=== PATIENT | female | born 1945 | race Caucasian/White ===

== ENCOUNTER 2018-01-31 20:48 | Inpatient (IN) | payer OTHER ==
[~2018-01-31] VITALS: Wt 96.8 kg
--- NOTE | ~2018-01-31 | HC ---
[facility] [place] [address] CONSULTATION Name: YESENIA PARTIDA Room #: 206- ADM IN M.R.#: [id number] Admission: 01/31/18 Attend Phys: Obie Mendes MD Discharge: Date of : 45 Report #: [id number] THIS REPORT FOR: //name// CC: bOie Mendes DATE OF SERVICE: 02/01/2018 ATTENDING PHYSICIAN: Obie Mendes MD REASON FOR CONSULTATION: Antibiotic management. HISTORY OF PRESENT ILLNESS: A 72-year-old woman is admitted through the Emergency Room with chest pain. The patient relates chest pain similar to the one she had previously. She has ischemic cardiomyopathy and angina pectoris. The pain is made worse by getting up, sitting motion. Currently, she relates she had some dry cough and is requiring 2 liters of oxygen supplementation. She uses supplemental oxygen at home on as needed basis every now and then. PAST MEDICAL HISTORY: Coronary artery bypass grafting. Angina pectoris. Ischemic cardiomyopathy per dipyridamole stress test. Diabetes mellitus. End-stage renal disease on hemodialysis three times weekly. Bilateral AKA. Chronic draining sinus tract in right groin area. Occasional cigarette smoking. DRUG ALLERGIES: TAPE, OXYCODONE, KETOROLAC, PENICILLIN. SHE TOLERATES KEFLEX. ANAPHYLAXIS WITH PENICILLIN. MORPHINE, VOMITING. SHE IS ALSO INTOLERANT OR ALLERGIC TO ACETAMINOPHEN, HYDROCODONE, CODEINE, BACLOFEN, IBUPROFEN AND TRAMADOL. ACTUALLY SHE TOLERATES VANCOMYCIN SHE TELLS ME. AT ONE POINT IN TIME, SHE APPEARS TO HAVE HAD SOME REACTION TO THESE MEDICATIONS. SOCIAL HISTORY: See H and P, old records. FAMILY HISTORY: See H and P, old records. REVIEW OF SYSTEMS: See ER records and as above. PHYSICAL EXAMINATION: GENERAL: Chronically ill-appearing, overweight woman. VITAL SIGNS: Presenting with following vital signs: Temperature 98.2, pulse 84, respirations 18 and BP 113/41. O2 saturation 94-99% on 2-3 liters oxygen nasal cannula. HEENMT: Head normocephalic and atraumatic. Pupils are reactive. Mouth: Upper plates, missing teeth on jaw. NECK: Supple, no thyromegaly. LUNGS: Few crackles in right lung posteriorly. HEART: S1 and S2. No gallop or murmur. ABDOMEN: Obese, soft, no masses or megaly. [facility] [address] [place] [address] CONSULTATION Name: YESENIA PARTIDA Room #: 206-P ADM IN M.R.#: [id number] Admission: 01/31/18 Attend Phys: Obie Mendes MD Discharge: Date of : 45 Report #: [id number] EXTREMITIES: Bilateral AKA, chronic right groin sinus tract, no drainage at present time, but I believe it was cultured. NEUROLOGIC: Grossly within normal limits. LABORATORY DATA: Sodium 131, potassium 6.6, BUN 49, creatinine 5.6, glucose 322 and calcium 9.4. Troponin 0.13. Protime 10.5. WBC elevated at 22,100, the differential revealed 87% neutrophils, hemoglobin 8.9 g/dL and platelets 246,000. ABGs: pH 7.40, pCO2 of 35, pO2 66, bicarbonate 21.6 and lactate normal at 1.93. These set of gases on 2 liters oxygen nasal cannula. RADIOLOGY EVALUATION: The chest x-ray revealed cardiomegaly, status post coronary artery bypass grafting, question right basilar infiltrate versus congestive heart failure and haziness on the left lower lung as well. There is a tunneled dialysis catheter on the right internal jugular vein. ASSESSMENT: 1. Chest pain, possible angina pectoris. 2. Coronary artery disease, status post coronary artery bypass grafting and evidence of ischemia by dipyridamole stress test. 3. Leukocytosis and question pneumonia versus asymmetric pulmonary edema. 4. End-stage renal disease on hemodialysis. 5. Diabetes mellitus. SUGGESTIONS: Recommend meropenem 500 mg IV every 12 hours, Levaquin 500 mg IV every 48 hours, Zyvox 600 mg IV every 12 hours. MRSA screen. ESR, CRP and procalcitonin. Streamline antibiotics once culture results available and pending test result ordered today, Dr. Mendes, thank you for requesting my suggestions. <ELECTRONICALLY SIGNED> By: Henry Palacios MD 02/02/18 0947 [id number] [id number] Henry Palacios MD /nt
--- NOTE | ~2018-01-31 | D ---
[facility] [place] [address] DISCHARGE SUMMARY Name: YESENIA PARTIDA Room #: [facility] M.R.[facility] [id number] Admission: 01/31/18 Attend Phys: Obie Mendes MD Discharge: 02/05/18 Date of : 45 Report #: [id number] THIS REPORT FOR: //name// CC: Obie Mendes DATE OF SERVICE: 02/05/2018 FINAL DIAGNOSES: 1. Pleural effusion. 2. End-stage renal disease. 3. Hyperkalemia. 4. Right groin infection. 5. Diabetes type 2. 6. Peripheral artery disease. 7. History of bilateral above knee amputation. 8. Anemia of chronic disease. 9. Diabetic gastroparesis. HOSPITAL COURSE: The patient was admitted with shortness of breath. Cardiac enzymes were only slightly elevated and actually decreasing and we felt this was more related to her renal dysfunction. She just had a previous admission at [facility] and evaluated by Cardiology there and their recommendation was medical management. Dr. Mccoy managed dialysis and the hyperkalemia. Dr. Christopher was consulted for concern of pneumonia; however, x-ray findings are more consistent with pulmonary edema. With additional dialysis showed improvement of the pulmonary edema. Dr. Christopher ordered a CT of the abdomen and pelvis. There was concern of chronic infection in the right groin femoral artery bypass graft. The patient reported that she had seen Dr. Corbett, her vascular surgeon, at [facility] in the past in regards to this and she reported that he did not have any plans for surgical intervention. There was purulent drainage, which was cultured and antibiotics were ordered accordingly. CT did not show an abscess in that area. Discussed antibiotic options with Dr. Christopher and we settled on oral Zyvox and Levaquin for discharge to the facility. DISPOSITION: She is being transferred back to [facility]. I signed her transfer orders and medication list. I will follow her stay there. She will remain on renal diabetic diet. We will arrange followup with her vascular surgeon again in regards to the right groin, but it appears that this has already been addressed in the past. <ELECTRONICALLY SIGNED> By: Obie Mendes MD 02/09/18 0922 [id number] Obie Mendes MD /nt
--- NOTE | ~2018-01-31 | H ---
[facility] [place] [address] HISTORY AND PHYSICAL Name: YESENIA PARTIDA Room #: 206-P ADM IN M.R.#: [id number] Admission: 01/31/18 Attend Phys: Obie Mendes MD Discharge: Date of : 45 Report #: [id number] THIS REPORT FOR: //name// CC: Obie Mendes CHIEF COMPLAINT: Chest pain. HISTORY OF PRESENT ILLNESS: The patient is a 72-year-old female from [facility] who was sent to the Emergency Room with an episode of chest pain. Symptoms began earlier in the afternoon and she described it as a persistent right-sided chest pain that seemed worse with a cough and she had some congestion with sputum production. She had some nausea as well. The care home called me stating that she was pale, diaphoretic, and slightly hypotensive and they sent her to the Emergency Room. She was diverted from [facility], which is her normal hospital, here. Evaluation of her in ER shows a chest x-ray with a right-sided infiltrate versus pulmonary edema. She did have an elevated white count. She has been treated for pneumonia overnight. She was hospitalized at [facility] about 7-10 days ago for chest pain. I believe her records were that her troponin was just slightly elevated, but it does not appear that any cardiac interventions were entertained. She was medically stabilized and transferred back. She does have a history of smoking on occasion and she has had significant peripheral vascular disease with bilateral [id number]-[id number] amputations in the past. PAST MEDICAL HISTORY: End-stage renal disease, on hemodialysis; COPD, prior history of smoking, she wears oxygen on occasion; hypertension, peripheral vascular disease as mentioned, bilateral AKA, anemia of chronic disease, gastroparesis, coronary artery disease with cardiac bypass in 1998. She has had breast cancer with a prior history of mastectomy. PAST SURGICAL HISTORY: As above. FAMILY HISTORY: Noncontributory. SOCIAL HISTORY: She has been living in the care home for 5-6 years. As mentioned, occasional tobacco history. No alcohol history. ALLERGIES: BACLOFEN, CODEINE, HYDROCODONE, IBUPROFEN, MORPHINE, OXYCODONE, PENICILLIN, TRAMADOL, VANCOMYCIN, TORADOL, FENTANYL. MEDICATIONS: Lantus, omeprazole, Dilaudid, aspirin, Coreg, guaifenesin, hydroxyzine for itching, iron, lactulose, Lyrica, multivitamin, NovoLog with meals, Procrit, Reglan, Lipitor, calcium acetate, Renvela, Flonase, Arimidex, Nephro-Ag. REVIEW OF SYSTEMS: She complains of nausea. She has had congested cough. She is having some right-sided pain. Denies headache, abdominal pain, constipation, [facility] [address] [place] [address] HISTORY AND PHYSICAL Name: YESENIA PARTIDA Room #: 206-P [facility] IN M.R.#: [id number] Admission: 01/31/18 Attend Phys: Obie Mendes MD Discharge: Date of : 45 Report #: [id number] diarrhea, or dysuria. OBJECTIVE: VITAL SIGNS: Temperature 36.4, pulse 87, respirations 26, blood pressure 107/37, O2 sat 98% on 2 liters. GENERAL: She is awake and alert, in no distress. HEAD AND NECK: Unremarkable. LUNGS: Clear. HEART: Regular. ABDOMEN: Obese, soft, normoactive bowel sounds. EXTREMITIES: She has bilateral AKA. LABORATORY DATA: White count was 22 with hemoglobin 8.9. Potassium is 6.6, creatinine 5.6. Troponin was 0.13. Chest x-ray shows opacity of the right lung, consider possibility of pulmonary edema versus pneumonia. ASSESSMENT: 1. Healthcare-associated pneumonia. 2. End-stage renal disease. 3. Hyperkalemia. 4. Diabetes type 2 with gastroparesis. 5. Peripheral artery disease with prior history of bilateral above-knee amputation and failed fem-pop bypass. 6. Coronary artery disease with a remote history of bypass in 1998. PLAN: For now, she would be covered empirically for healthcare-related pneumonia given the elevated white count, right-sided chest pain and chest x-ray findings. Dr. Palacios from [place] has assessed her and ordered antibiotics. The Renal Service has been consulted in regards to dialysis. The nursing staff reported potassium level was around 7 this morning, but the lab did report it was hemolyzed specimen and she is very difficult to draw blood from, so we will await their assessment and treatment of her electrolytes. Lovenox DVT prophylaxis and other medications to continue from home. <ELECTRONICALLY SIGNED> By: Obie Mendes MD 02/01/18 1821 0958 1322 Obie Mendes MD /nt
--- NOTE | ~2018-01-31 | HC ---
[facility] [place] [address] CONSULTATION Name: YESENIA PARTIDA Room #: 206-P ADM IN M.R.#: [id number] Admission: 01/31/18 Attend Phys: Obie Mendes MD Discharge: Date of : 45 Report #: [id number] THIS REPORT FOR: //name// CC: Obie Mendes DATE OF SERVICE: 02/01/2018 TYPE OF REPORT: Nephrology consultation. REASON FOR CONSULTATION: End-stage renal disease with volume overload and hyperkalemia. HISTORY OF PRESENT ILLNESS: This is a 72-year-old female who lives at [facility]. She dialyzes usually on a Friday, Friday and Friday basis at [facility]. She last dialyzed on 01/30/2018. She states her dialysis is 3 hours. She is unaware of how much fluid they take off. She presented to the Emergency Room overnight with chest and abdominal pain. She was found to have a leukocytosis with a white count of 22.1. She was found to have a right-sided infiltrate on chest x-ray as well as some left pleural effusion. She had some laboratory abnormalities including a sodium of 131, potassium of 6.6, glucose of 322 and bicarbonate of 20. She was treated in the Emergency Room with insulin, dextrose, albuterol and sodium bicarbonate. She had repeat labs drawn since that time but it was hemolyzed. At this time, the patient is very weak. She continues to complain of some nausea. No vomiting and no diarrhea. She is having epigastric abdominal pain. She is also having some anterior chest pain, although she cannot describe much about the details of that. Mild dyspnea. From a dialysis standpoint, I believe she has been on dialysis about 8 years. She does not remember exactly when, but I have some older records indicating she had started dialysis in about 2009. She has never supported on arm access and is dialyzed for all that time on a right internal jugular vein tunneled catheter. Etiology of her end-stage renal disease is diabetes mellitus. PAST MEDICAL HISTORY: Diabetes mellitus and she cannot tell when it started. Hypertension, end-stage renal disease. She has coronary artery disease with a remote 4-vessel bypass. She has peripheral vascular disease. She had bilateral feupy-ykq-nzhn amputations. The right side was about in 2014 and the left side in 2016 to the best of her recollection. She had remote breast cancer. She has been disabled and in care centers for years. MEDICATIONS: The list is exceedingly long and it includes Lantus; omeprazole; Dilaudid; sevelamer 800 mg t.i.d. with meals as a phosphate binder; aspirin; diphenhydramine; Dulcolax; carvedilol 6.25 mg b.i.d.; iron 325 mg daily; Lyrica 25 mg daily; MiraLax; multivitamin daily; NovoLog insulin 8 units with meals; [address] [address] CONSULTATION Name: YESENIA PARTIDA Room #: 206-P [facility] IN M.R.#: [id number] Admission: 01/31/18 Attend Phys: Obie Mendes MD Discharge: Date of : 45 Report #: [id number] erythropoietin 8000 units, frequency unknown; metoclopramide 5 mg t.i.d. and also, calcium acetate 667 mg t.i.d. with meals (questionable second phosphate binder in addition to the sevelamer (?)) and several other p.r.n. medications. ALLERGIES: Numerous and include ASPIRIN, BACLOFEN, CODEINE, HYDROCODONE, IBUPROFEN, MORPHINE, OXYCODONE, PENICILLIN, TRAMADOL, VANCOMYCIN, TORADOL and FENTANYL, although she is unaware of what all these reactions are. FAMILY HISTORY: Noncontributory. SOCIAL HISTORY: The patient has lived in care centers for years. REVIEW OF SYSTEMS: Has some dyspnea. Denies cough. Has had chest pain in the mid chest as noted above. No palpitations. Has mid epigastric pain also. Some nausea with decreased appetite. No vomiting. No diarrhea. Incontinent of her bowels with a diaper in place. Unaware if she makes any urine. Very lethargic overall. PHYSICAL EXAMINATION: GENERAL: Chronically ill-appearing female, awake, lethargic, does respond some. VITAL SIGNS: Blood pressure 107/37, heart rate 87, temperature 97.6 degrees Fahrenheit and oxygen saturation 98%. HEENT: Shows pupils are equal and reactive. Sclerae nonicteric. Oral mucosa dry. NECK: Veins are not distended. CHEST: Shows decreased breath sounds, coarse bilaterally. CARDIOVASCULAR: Regular rate and rhythm with distant heart tones. ABDOMEN: Obese. Has active bowel sounds and is nontender. EXTREMITIES: Bilateral bldcz-cxw-oehp amputations. No upper extremity edema. She has a right IJ tunneled dialysis catheter in place. LABORATORY DATA: Sodium 131, potassium 6.6, chloride 98, bicarbonate 20, BUN 49, creatinine 5.6, glucose 322 and calcium 9.4. Troponin 0.13. White count 22.1, hemoglobin 8.9; hematocrit 27.8 and platelets 246,000. Blood gas pH 7.40, pCO2 of 35.5 and pO2 of 66.2. Lactate on that 1.93. ASSESSMENT: 1. End-stage renal disease. She shows hyperkalemia, although there were some hemolysis involved. Sugars up. Volume is up on chest x-ray. We will give her an extra dialysis run today, both correct potassium and intravascular volume. Her normal dialysis day is tomorrow and we will probably need to dialyze again tomorrow. 2. Pulmonary infiltrate, right lung, on broad-spectrum antibiotics. Again, she had the leukocytosis. Obviously with a white count up, we need to be concerned about other avenues of infection. We always keep an eye on her dialysis catheter as it might be involved. We will receive serial blood cultures [facility] [address] [place] [address] CONSULTATION Name: YESENIA PARTIDA Room #: 206-P ADM IN M.R.#: [id number] Admission: 01/31/18 Attend Phys: Obie Mendes MD Discharge: Date of : 45 Report #: [id number] results. 3. Severe peripheral vascular disease, previous bilateral rjaci-sld-wkfh amputations. 4. Coronary artery disease, prior coronary artery bypass graft, now has some chest pain. Once her troponins, treat symptomatically. 5. Evidence of mild pleural effusion, left lung. 6. Anemia of end-stage renal disease. 7. Polypharmacy. PLAN: 1. Dialysis today on a 2 potassium dialysate. We will strive for 2-3 liters of ultrafiltration and see how she responds. Further decisions tomorrow about additional dialysis. 2. Continue antibiotics per Infectious Disease Service. 3. Repeat labs in the morning. 4. We will follow along the care of this patient. <ELECTRONICALLY SIGNED> By: Je Mccoy MD 02/04/18 1200 [id number] [id number] Warren Graham MD /nt
--- NOTE | ~2018-01-31 | EKG ---
[place] [address] [address] [facility] [place] [address] ELECTROCARDIOGRAM REPORT Name: YESENIA PARTIDA Room #: 206-P ADM IN M.R.#: [id number] Admission: 01/31/18 Attend Phys: Obie Mendes MD Discharge: Date of : 45 Report #: [id number] THIS REPORT FOR: //name// [facility] ED Test Date: 2018-01-31 Test Time: 21:03:54 Pat Name: YESENIA PARTIDA Department: Room: 206 Gender: F Metal [employer]: bg : 1945 Requested By: Elda Harper Order Number: [id number] MD: Henry Gillis Measurements Intervals [place] Rate: 97 P: -6 ND: 201 QRS: -36 QRSD: 148 T: 161 QT: 387 QTc: 492 Interpretive Statements Sinus rhythm Ventricular premature complex Left bundle branch block Baseline wander in lead(s) V5 Compared to ECG 08/13/2012 14:24:10 Ventricular premature complex(es) now present Left bundle-branch block now present Sinus bradycardia no longer present Electronically Signed On 02-02-2018 8:35:07 CDT by Henry Gillis [email or web address] <ELECTRONICALLY SIGNED> By: Henry Gillis MD, [facility] 02/02/18 0835 02 02 Henry Gillis MD, [facility] /EPI
[~2018-01-31 20:48] MED LIST: ACETAMINOPHEN325 M1 PO; ALLOPURINOL 10100 M1 PO; ALPRAZOLAM ER1 MG PO; ARIMIDEX PO; ASPIRIN325 PO; BENADRYL25 MG PO; CALCIUM ACETAT667 M2 PO; CARVEDILOL12.5 MG PO; CARVEDILOL25 MG PO; COUMADIN 2.5MG2.5 M1 PO; COUMADIN 3 MG TA3 MG PO; DILAUDID 2 MG TA2 MG PO; DUONEB 2.5-0.5 M3 ML INH; ENTOCORT EC 3 MG3 M1 PO; FENTANYL PATCH75 MCG TRANSDERM; FISH OIL 1,0001 EAC5 PO; FLONASE 0.05%50 MCG NASAL; GLYCOLAX POWDER17 G1 PO; HUMALOG100 UNIT/1 SUBQ; HYDROCODON-ACE1 EAC8 PO; ISOSORBIDE MONO60 M1 PO; KEFLEX500 MG PO; LACTINEX PO; LANTUS SUBQ; LASIX 80 MG TAB80 M1 PO; LEXAPRO20 MG PO; LIPITOR 40 MG T40 M1 PO; LYRICA 75 MG CA75 MG PO; MIRALAX255 GM PO; MOBIC7.5 MG PO; NEPHRO-VITE RX1 TA1 PO; NITROSTAT0.4 MG SUBLING; NOVOLOG100 UNIT/1 SUBQ; PHENERGAN 25 MG25 M1 PO; PLAVIX 75 MG TA75 M1 PO; PRILOSEC 20 MG20 MG PO; PRINIVIL40 MG PO; PROAIR HFA8.5 GM INH; PROSOURCE275 GM PO; RENA-VITE PO; RENVELA800 MG PO; RESTORIL30 MG PO; SANTYL OINTMENT30 G1; SENNA CONCENTR8.6 MG PO; SEVELAMER HCL PO; VALIUM5 MG PO; VITAMIN A & D60 G1 TOP; ZOLOFT25 MG PO; ZYRTEC 10 MG TA10 M1 PO; ZYRTEC 10 MG TA10 MG PO; [UNRECOGNIZED DRUG - OTHER]
[2018-01-31 21:30] LABS: ABSOLUTE NEUTROPHILS 16.7 thou/uL (1.4-8.2); BASOPHILS 0.5 % (0.0-2.0); EOSINOPHILS 1.8 % (0.0-3.0); HEMATOCRIT 27.8 % (37.0-47.0); HEMOGLOBIN 8.9 gm/dL (12.0-15.0); LYMPHOCYTES 6.1 % (24.0-44.0); MCH 30.8 pg (26.0-34.0); MCHC 32.1 g/dL (28.0-37.0); MCV 96.1 fL (80.0-100.0); MONOCYTES 4.6 % (1.0-8.0); RDW 14.2 % (10.5-14.5); WBC 22.1 thou/uL (4.0-11.0)
[2018-01-31 21:35] LABS: CALCIUM 9.4 mg/dL (8.5-10.1); CREATININE 5.6 mg/dL (0.6-1.0)
[2018-01-31 21:40] LABS: POTASSIUM 6.6 mmol/L (3.5-5.1)
[2018-01-31 21:44] LABS: TROPONIN-I 0.13 ng/mL (<0.06)
[2018-01-31 22:08] LABS: PLATELET COUNT 246 thou/uL (150-400)
[2018-01-31 22:41] LABS: BE(vivo) -2.7 mmol/L (-2 to +3); HCO3 21.6 mmol/L (22.0-26.0); PCO2 35.5 mmHg (35.0-45.0); PO2 66.2 mmHg (80.0-100.0); pH 7.403 (7.360-7.450); sO2 93.3 % (92.0-98.0)
[2018-01-31 22:45] LABS: INR 1.1; PROTIME 10.5 Seconds (9.3-11.4)
[2018-01-31 22:46] VITALS: BP 128/72
[2018-02-01] VITALS (7 sets, daily range): BP systolic 87–150; BP diastolic 25–75
[2018-02-01] MEDS ORDERED: ASPIRIN325 PO (00:37)
[2018-02-01] MEDS ORDERED: BENADRYL25 MG PO (00:40)
[2018-02-01] MEDS ORDERED: BISACODYL SUPP10 MG RECTAL (00:42)
[2018-02-01] MEDS ORDERED: COREG6.25 MG PO (00:44)
[2018-02-01] MEDS ORDERED: ROBITUSSIN100 MG/53 PO (00:48)
[2018-02-01] MEDS ORDERED: HYDROXYZINE HCL25 M1 PO (00:51)
[2018-02-01] MEDS ORDERED: IRON325 PO (00:53)
[2018-02-01] MEDS ORDERED: CONSTULOSE10 GM/152 PO (00:56)
[2018-02-01] MEDS ORDERED: LYRICA 50 MG50 MG PO (00:58)
[2018-02-01] MEDS ORDERED: 24HR ALLERGY REL5 MG PO (01:00)
[2018-02-01] MEDS ORDERED: BAZA CR.1 E1 TOP (01:04)
[2018-02-01] MEDS ORDERED: MIRALAX17 GM PO (01:05)
[2018-02-01] MEDS ORDERED: ELOCON15 GM TOP (01:09)
[2018-02-01] MEDS ORDERED: CENTRUM SILVER1 EAC4 PO (01:10)
[2018-02-01] MEDS ORDERED: NITROGLYCERIN0.4 MG PO (01:11)
[2018-02-01] MEDS ORDERED: NOVOLOG100 UNIT/1 SUBQ (01:12)
[2018-02-01] MEDS ORDERED: PROCRIT4000 UNIT/ INJECTION (01:15)
[2018-02-01] MEDS ORDERED: REGLAN 10 MG TA10 MG PO (01:17)
[2018-02-01] MEDS ORDERED: SENNA8.6 MG PO (01:22)
[2018-02-01] MEDS ORDERED: TRIAMCINOLONE (01:27)
[2018-02-01] MEDS ORDERED: ONDANSETRON HCL4 M2 PO (01:28)
[2018-02-01] MEDS ORDERED: [UNRECOGNIZED DRUG - OTHER] (01:31)
[2018-02-01] MEDS ORDERED: VENELEX OINTMEN60 GM TOP (01:34)
[2018-02-01 12:40] LABS: ALBUMIN 2.9 g/dL (3.4-5.0); CALCIUM 8.4 mg/dL (8.5-10.1); CREATININE 4.8 mg/dL (0.6-1.0); MAGNESIUM 2.3 mg/dL (1.8-2.4); POTASSIUM 5.2 mmol/L (3.5-5.1); TOTAL BILIRUBIN 0.5 mg/dL (<0.1-1.0); TOTAL PROTEIN 6.7 g/dL (6.4-8.2); TROPONIN-I 0.12 ng/mL (<0.06)
[2018-02-01 23:05] LABS: GLYCOHEMOGLOBIN (HGB A1C) 6.5 % (4.8-5.6)
[2018-02-02 03:30] LABS: HEMATOCRIT 24.8 % (37.0-47.0); HEMOGLOBIN 8.1 gm/dL (12.0-15.0); MCHC 32.8 g/dL (28.0-37.0); MCV 94.4 fL (80.0-100.0); RBC 2.63 mil/uL (4.20-5.00); RDW 13.8 % (10.5-14.5); WBC 11.3 thou/uL (4.0-11.0)
[2018-02-02 03:34] LABS: CALCIUM 8.8 mg/dL (8.5-10.1); CREATININE 4.3 mg/dL (0.6-1.0); POTASSIUM 5.2 mmol/L (3.5-5.1)
[2018-02-02 04:47] VITALS: BP 116/35
[2018-02-02 07:25] VITALS: BP 121/42
[2018-02-02 11:50] VITALS: BP 118/52
[2018-02-02 16:15] VITALS: BP 99/51
[2018-02-02 20:18] VITALS: BP 124/97
[2018-02-03 00:13] VITALS: BP 106/51
[2018-02-03 03:36] LABS: ALBUMIN 2.9 g/dL (3.4-5.0); CALCIUM 8.2 mg/dL (8.5-10.1); PHOSPHORUS 3.9 mg/dL (2.5-4.9); POTASSIUM 5.7 mmol/L (3.5-5.1)
[2018-02-03 03:37] LABS: CREATININE 5.4 mg/dL (0.6-1.0)
[2018-02-03 04:56] VITALS: BP 101/37
[2018-02-03 07:35] VITALS: BP 117/73
[2018-02-03 09:11] LABS: HEPATITIS B SURFACE AG Negative (Negative)
[2018-02-03 11:55] VITALS: BP 117/55
[2018-02-03 15:55] VITALS: BP 90/42
[2018-02-03 20:24] VITALS: BP 126/100
[2018-02-04 03:21] VITALS: BP 92/52
[2018-02-04 07:57] VITALS: BP 90/56
[2018-02-04 11:38] VITALS: BP 103/59
[2018-02-04 15:49] VITALS: BP 98/50
[2018-02-04 19:50] VITALS: BP 94/57
[2018-02-05 03:55] VITALS: BP 108/63
[2018-02-05 08:16] VITALS: BP 100/63
[2018-02-05 11:02] VITALS: BP 90/52
[2018-02-05] MEDS ORDERED: LINEZOLID600 MG PO (12:22)
[2018-02-05] MEDS ORDERED: IPRAT-ALBUT 0.5-3 ML INH (12:23)
[2018-02-05] MEDS ORDERED: COREG6.25 MG PO (12:24)
[2018-02-05] MEDS ORDERED: LEVAQUIN 250 M250 MG PO (12:25)
== END 2018-02-05 15:09 | DRG 871 ==
LOC: ER 20:48 → EROBS 22:21 → 2N 22:21
PROVIDERS: Emergency Medicine; Internal Medicine Geriatric Medicine; Internal Medicine Nephrology
PROC: 5A1D70Z Performance of Urinary Filtration, Intermittent, Less than 6 Hours Per Day (ICD-10-PCS; principal; 2018-02-01)
PROC: 5A1D70Z Performance of Urinary Filtration, Intermittent, Less than 6 Hours Per Day (ICD-10-PCS; 2018-02-02)
PROC: 5A1D70Z Performance of Urinary Filtration, Intermittent, Less than 6 Hours Per Day (ICD-10-PCS; 2018-02-03)
PROC: 5A1D70Z Performance of Urinary Filtration, Intermittent, Less than 6 Hours Per Day (ICD-10-PCS; 2018-02-04)
DX: A41.9 Sepsis, unspecified organism (principal); J18.9 Pneumonia, unspecified organism; N18.6 End stage renal disease; I13.2 Hypertensive heart and chronic kidney disease with heart failure and with stage 5 chronic kidney disease, or end stage renal disease; E78.5 Hyperlipidemia, unspecified; E11.22 Type 2 diabetes mellitus with diabetic chronic kidney disease; E11.51 Type 2 diabetes mellitus with diabetic peripheral angiopathy without gangrene; E87.5 Hyperkalemia; R65.20 Severe sepsis without septic shock; I25.5 Ischemic cardiomyopathy; I25.10 Atherosclerotic heart disease of native coronary artery without angina pectoris; D63.8 Anemia in other chronic diseases classified elsewhere; E11.43 Type 2 diabetes mellitus with diabetic autonomic (poly)neuropathy; K31.84 Gastroparesis; E87.70 Fluid overload, unspecified; I50.9 Heart failure, unspecified; L08.9 Local infection of the skin and subcutaneous tissue, unspecified; Z95.1 Presence of aortocoronary bypass graft; Z79.4 Long term (current) use of insulin; Z85.3 Personal history of malignant neoplasm of breast; Z90.49 Acquired absence of other specified parts of digestive tract; Z89.422 Acquired absence of other left toe(s); Z88.6 Allergy status to analgesic agent; Z88.0 Allergy status to penicillin; Z88.8 Allergy status to other drugs, medicaments and biological substances; Z90.10 Acquired absence of unspecified breast and nipple; Z79.899 Other long term (current) drug therapy
CPT/HCPCS: 10081; 32100

== ENCOUNTER 2018-02-06 11:46 | Emergency (ER) | payer OTHER ==
[~2018-02-06 11:46] MED LIST changes: +24HR ALLERGY REL5 MG PO; +BAZA CR.1 E1 TOP; +BISACODYL SUPP10 MG RECTAL; +CENTRUM SILVER1 EAC4 PO; +CONSTULOSE10 GM/152 PO; +COREG6.25 MG PO; +ELOCON15 GM TOP; +HYDROXYZINE HCL25 M1 PO; +IPRAT-ALBUT 0.5-3 ML INH; +IRON325 PO; +LEVAQUIN 250 M250 MG PO; +LINEZOLID600 MG PO; +LYRICA 50 MG50 MG PO; +MIRALAX17 GM PO; +NITROGLYCERIN0.4 MG PO; +ONDANSETRON HCL4 M2 PO; +PROCRIT4000 UNIT/ INJECTION; +REGLAN 10 MG TA10 MG PO; +ROBITUSSIN100 MG/53 PO; +SENNA8.6 MG PO; +TRIAMCINOLONE; +VENELEX OINTMEN60 GM TOP; +[UNRECOGNIZED DRUG - OTHER]
== END 2018-02-06 17:03 ==
LOC: ER 11:46
DX: I46.9 Cardiac arrest, cause unspecified (principal); N18.6 End stage renal disease; I13.2 Hypertensive heart and chronic kidney disease with heart failure and with stage 5 chronic kidney disease, or end stage renal disease; E11.22 Type 2 diabetes mellitus with diabetic chronic kidney disease; I50.9 Heart failure, unspecified; E11.40 Type 2 diabetes mellitus with diabetic neuropathy, unspecified; F17.210 Nicotine dependence, cigarettes, uncomplicated; E78.5 Hyperlipidemia, unspecified; I73.9 Peripheral vascular disease, unspecified; F32.9 Major depressive disorder, single episode, unspecified; F41.9 Anxiety disorder, unspecified; M19.90 Unspecified osteoarthritis, unspecified site; I25.10 Atherosclerotic heart disease of native coronary artery without angina pectoris; E05.90 Thyrotoxicosis, unspecified without thyrotoxic crisis or storm; Z88.6 Allergy status to analgesic agent; Z88.5 Allergy status to narcotic agent; Z88.8 Allergy status to other drugs, medicaments and biological substances; Z88.0 Allergy status to penicillin; Z91.048 Other nonmedicinal substance allergy status; Z85.3 Personal history of malignant neoplasm of breast; Z90.49 Acquired absence of other specified parts of digestive tract; Z86.718 Personal history of other venous thrombosis and embolism; Z86.2 Personal history of diseases of the blood and blood-forming organs and certain disorders involving the immune mechanism; Z99.2 Dependence on renal dialysis; Z98.890 Other specified postprocedural states; Z90.710 Acquired absence of both cervix and uterus; Z90.11 Acquired absence of right breast and nipple; Z79.4 Long term (current) use of insulin